=== PATIENT | male | born 1960 | race Two or more races ===

== ENCOUNTER 2019-12-23 09:22 | Emergency (ER) | payer OTHER ==
[~2019-12-23] VITALS: Ht 165.1 cm; Wt 63.5 kg
[2019-12-23 09:28] VITALS: BP 150/75
--- NOTE | 2019-12-23 10:52 | NUR ---
patient ok to book, a/ox4, breathing even and unlabored, no sob noted. Needs attended. Patient discharged to [facility] in stable condition. Written and verbal after care instructions given. Patient verbalizes understanding of instruction.
== END 2019-12-23 10:53 ==
LOC: ER 09:22
DX: M54.5 Low back pain (principal); G89.29 Other chronic pain; F11.20 Opioid dependence, uncomplicated
CPT/HCPCS: 72100-TC